=== PATIENT | male | born 1995 | race Caucasian/White ===

== ENCOUNTER 2017-02-28 18:58 | Emergency (ER) | payer OTHER ==
[~2017-02-28] VITALS: Ht 188 cm; Wt 61.2 kg
[~2017-02-28 18:58] MED LIST: BENADRYL25 MG PO; DELTASONE20 MG PO; EPIPEN 2-P0.3 MG/0.3 IM
[2017-02-28] MEDS ORDERED: IBUPROFEN600 MG PO (20:07)
== END 2017-02-28 20:22 | disposition home or self-care (01) ==
LOC: ED 18:58
PROC: 2W3CX1Z Immobilization of Right Lower Arm using Splint (ICD-10-PCS; principal; 2017-02-28)
DX: S60.211A Contusion of right wrist, initial encounter (principal); F41.9 Anxiety disorder, unspecified; F32.9 Major depressive disorder, single episode, unspecified; W20.8XXA Other cause of strike by thrown, projected or falling object, initial encounter
CPT/HCPCS: 29125; 73110; 73130; 99283

== ENCOUNTER 2023-06-19 00:22 | Emergency (ER) | payer OTHER ==
[~2023-06-19] VITALS: Ht 188 cm; Wt 61.2 kg
[~2023-06-19 00:22] MED LIST changes: +IBUPROFEN600 MG PO
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
[2023-06-19] MEDS ORDERED: KEPPRA1000 MG PO (00:32)
[2023-06-19 01:05] LABS: EOSINOPHILS 2.3 % (0-6); HEMATOCRIT 39.7 % (35.0-50.0); HEMOGLOBIN 13.2 g/dL (12.0-18.0); MCH 30.6 (27-36); MCHC 33.3 g/dl (30-36); MCV 91.9 fl (81-99); MONOCYTES 9.3 % (0-12); NEUTROPHILS 45.4 % (39-80); PLATELET COUNT 246 K/uL (140-440); RBC 4.32 M/ul (4.3-5.7); RDW 13.6 (10.5-15.0)
[2023-06-19 01:12] LABS: ANION GAP 9.8 (7-21); BUN/CREATININE RATIO 11.6 (6.0-28.6); CREATININE, SERUM 1.12 mg/dL (0.70-1.30); POTASSIUM 3.8 mmol/L (3.5-5.1)
[2023-06-19 01:58] LABS: AMPHETAMINES, URINE NEGATIVE (NEGATIVE); BARBITURATES, URINE NEGATIVE (NEGATIVE); BENZODIAZEPINE, URINE NEGATIVE (NEGATIVE); BUPRENORPHINE, URINE NEGATIVE (NEGATIVE); CANNABINOID, URINE NEGATIVE (NEGATIVE); COCAINE, URINE NEGATIVE (NEGATIVE); ECSTASY, URINE NEGATIVE (NEGATIVE); FENTANYL, URINE NEGATIVE (NEGATIVE); METHADONE, URINE NEGATIVE (NEGATIVE); OPIATES, URINE NEGATIVE (NEGATIVE); OXYCODONE, URINE NEGATIVE (NEGATIVE); PHENCYCLIDINE, URINE NEGATIVE (NEGATIVE)
[2023-06-19 02:33] VITALS: BP 110/70
== END 2023-06-19 02:34 | disposition home or self-care (01) ==
LOC: ED 00:22
PROVIDERS: Emergency Medicine
DX: R07.89 Other chest pain (principal); R06.02 Shortness of breath; Z79.899 Other long term (current) drug therapy; Z91.030 Bee allergy status; Z88.8 Allergy status to other drugs, medicaments and biological substances
CPT/HCPCS: 36415; 71045; 80048; 80307; 85025; 85379; 99285-25